=== PATIENT | female | born 1950 | race African-American/Black ===

== ENCOUNTER → 2017-02-11 | Outpatient (CLI) | payer MEDICARE, OTHER ==
[~2017-02-11] MED LIST: ACET500T98 PO; ALBU18HF IH; AMLO-145 PO; BENZ0.5T3 PO; HYDR25TA6 PO; LORA-444 PO; LORA2ORA2 PO; METO-429 PO; RISP2TAB3 PO; SERT20OR2 PO; SIMV20TA2 PO; TEMA-106 PO; TOPI-44 PO
--- NOTE | 2017-02-11 17:49 | RADRPT ---
PROCEDURE: XR Pelvis and Hips. CLINICAL INDICATION: Pelvic pain. Bilateral hip pain. TECHNIQUE: Five views. Frontal pelvis. Frontal and lateral right hip. Frontal and lateral left hip. COMPARISON: No prior studies are available for comparison. FINDINGS: There is no fracture or dislocation. The soft tissues are normal. The articular surfaces are intact. There are degenerative changes of both hips with osteophytes and joint space narrowing. Left is worse than right. There is no lytic or blastic lesion. There is no radiopaque foreign body. IMPRESSION: 1. Moderate degenerative changes of both hips with left worse than right. 2. No acute abnormality. RPTAT: QQ .Ken Harris MD, MD Date Time Electronically viewed and signed by .Ken Harris MD, MD on 02/11/2017 17:49 .R/
--- NOTE | 2017-02-12 10:32 | HKNOTE ---
DATE OF SERVICE: 02/11/2017 CHIEF COMPLAINT: Bilateral groin pain. HISTORY OF PRESENT ILLNESS: This is a 66-year-old female who lives at an assisted living. She uses a walker for ambulation. She is a minimal ambulator. She denies any history of trauma. She is co mplaining of groin pain with radiation to the bilateral knees. She has not had any previous treatme nt. She does not require any pain medications. She denies any back pain. She is able to perform h er activities of daily living. She has no other complaints. GAIT: Nonantalgic gait, use of a walker. RIGHT HIP EXAMINATION: 0 to 80 degrees range of motion, 40 degrees of external rotation, 10 degrees of internal rotation, negative Stinchfield, negative straight leg raise, negative Theresa's. LEFT HIP EXAMINATION: 0 to 80 degrees range of motion, 40 degrees of external rotation, 10 degrees of internal rotation, negative Stinchfield, negative straight leg raise, negative Theresa's. MOTOR STRENGTH: 5/5 peroneals, quadriceps, hamstrings and gastrocsoleus, tibialis anterior bilatera lly. AP PELVIS: There are degenerative changes of bilateral hips. X-RAYS RIGHT HIP: There is joint space narrowing with marginal osteophytes. X-RAYS LEFT HIP: There is joint space narrowing with marginal osteophytes. IMPRESSION: A 66-year-old female with bilateral hip osteoarthritis. PLAN: I discussed treatment options with Ms. Rand. She lives in an assisted living facility. S he is able to perform her activities of daily living. She will continue physical therapy at the [facility]. She can take ibuprofen for pain. She will follow up as needed. Dictated By: JONAS IRAHETA/BEBE Conf#: [id number] DID#: [id number]
== END | disposition home or self-care (01) ==
LOC: HKI 14:58
PROVIDERS: ATTEND Orthopaedic Surgery Adult Reconstructive Orthopaedic Surgery
DX: M16.0 Bilateral primary osteoarthritis of hip (principal)
CPT/HCPCS: 73523; Z7500; G0463